=== PATIENT | male | born 1985 | race Caucasian/White ===

== ENCOUNTER 2019-05-12 22:58 | Inpatient (IN) | payer OTHER ==
[2019-05-12] MEDS ORDERED: Fentanyl 100 MCG/2 ML VIAL ONE (23:03)
[2019-05-12] MEDS ORDERED: Adacel (T-DAP) 0.5 ML SYRINGE ONE (23:03)
[2019-05-12 23:18] LABS: #Basophils 0.1 thou/uL (0.0-0.2); #Eosinphils 0.5 thou/uL (0.0-0.7); #Monocytes 0.7 thou/uL (0.11-0.59); #Neutrophils 8.4 thou/uL (1.40-6.50); %Basophils 0.6 % (0.0-1.0); %Monocytes 6.2 % (0.0-10.0); %Neutrophils 72.2 % (42.0-75.0); Hemoglobin 15.3 g/dL (14.0-18.0); Mean Corpuscular HGB CONC 34.6 g/dL (32.0-36.0); Mean Corpuscular Hemoglobin 31.4 pg (27.0-31.0); Mean Corpuscular Volume 90.8 fL (78.0-98.0); Mean Platelet Volume 9.2 fL (7.4-10.4); Platelet Count 156 thou/uL (130-400); RBC Distribution Width 11.4 % (11.5-14.5); Red Blood Cell (RBC) Count 4.85 mill/uL (4.70-6.10); White Blood Cell (WBC) Count 11.6 thou/uL (4.8-10.8)
--- NOTE | 2019-05-12 23:30 | RAD ---
XR Tib Fib Rt Leg 2 View HISTORY: Post reduction COMPARISON: None. FINDINGS: Comminuted mainly obliquely oriented distal tibial shaft and a more transverse to slightly oblique orientation of the distal fibular fracture noted. The distal aspects of both fractures are posteriorly angulated. The distal tibial fracture appears to have a intra-articular component extendi ng into the tibial plafond. IMPRESSION: Distal tibia and fibular fractures.
[2019-05-12 23:38] LABS: ALT (SGPT) 50 U/L (8-55); AST (SGOT) 28 U/L (5-34); Albumin 4.6 g/dL (3.5-5.0); Alkaline Phosphatase 75 U/L (40-110); Anion Gap 13 mmol/L (10-20); BUN (Urea Nitrogen) 12 mg/dL (8.9-20.6); Bilirubin, Total 0.4 mg/dL (0.2-1.2); Calc. Creatinine Clearance 0 mL/min (70-130); Carbon Dioxide 24 mmol/L (22-29); Chloride 104 mmol/L (98-107); Estimated GFR-MDRD Greater than 90; Globulin 2.4 g/dL (2.4-3.5); Glucose 122 mg/dL (70-105); Potassium 3.9 mmol/L (3.5-5.1); Sodium 137 mmol/L (136-145)
[2019-05-12] MEDS ORDERED: Morphine 4 MG/ML VIAL ONE (23:46)
[2019-05-12] MEDS ORDERED: Ondansetron PF 4 MG/2 ML Vial ONE (23:46)
--- NOTE | 2019-05-12 23:51 | RAD ---
XR Chest 1 View Portable HISTORY: Preop COMPARISON: None. FINDINGS: Heart size and mediastinum are within normal limits. The lungs are clear of infiltrates. Ol d right clavicle fracture seen. IMPRESSION: No active intrathoracic disease.
[2019-05-12 23:56] LABS: Magnesium 1.9 mg/dL (1.6-2.6); Phosphorus 3.2 mg/dL (2.3-4.7)
[2019-05-12] MEDS ORDERED: Dextrose 50% Abboject 50 ML SYRINGE SLOW IVP PRN (23:57)
[2019-05-12] MEDS ORDERED: Ondansetron PF 4 MG/2 ML Vial IVP PRN (23:57)
[2019-05-12] MEDS ORDERED: hydrALAZINE 20 MG/ML VIAL SLOW IVP PRN (23:57)
[2019-05-12] MEDS ORDERED: Dextrose 5% in Water 1,000 ML IV PRN (23:57)
[2019-05-13] MEDS ORDERED: Morphine 4 MG/ML VIAL ONE (00:27)
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
--- NOTE | 2019-05-13 01:02 | CON ---
DATE OF CONSULTATION: CHIEF COMPLAINT: Right ankle pain. HISTORY OF PRESENT ILLNESS: Mr. Land is a 33-year-old male, who stepped off a step onto uneven ground. He fell and rotated his ankle. He had pain and immediate deformity. He was unable to bear weight. He had bleeding. He was taken to the emergency department from [place]. He was found to have an open distal tibia and fibular fracture. Orthopedics was consulted for this injury. The patient has been given Ancef and has had a dressing placed over his wound. He is resting comfortably. He has received morphine. PAST MEDICAL HISTORY: The patient has a history of anxiety and depression. PAST SURGICAL HISTORY: Denies recent or past surgeries. MEDICATIONS: Zoloft, buspirone, and Ambien. REVIEW OF SYSTEMS: Positive for right ankle and leg pain. Otherwise, negative 10-point review of systems. SOCIAL HISTORY: The patient does not smoke tobacco. He does use marijuana. He denies significant alcohol use. IMAGING STUDIES: X-rays of the right leg demonstrate a comminuted and displaced distal tibia and fibular fracture. The fracture appears open with disruption of the soft tissues. PHYSICAL EXAMINATION: VITAL SIGNS: The patient's vital signs are stable. He is afebrile, pulse is 83, blood pressure is 121/82, respiratory rate 16, and temperature is 98. GENERAL: He is alert, lying supine, in no apparent distress. HEENT: Normocephalic and atraumatic. RESPIRATORY: Breathing comfortably. ABDOMEN: Soft, nontender, and nondistended. CARDIOVASCULAR: Pulses are palpable and regular. MUSCULOSKELETAL: The patient's right foot has an intact dorsalis pedis pulse. He is able to flex and extend the toes. He reports feeling sensation of the dorsal and plantar foot. He has a 5 cm laceration, which is vertical in orientation over the medial malleolus. There is exposed medial malleolar bone and fracture bone in the wound. No active arterial bleeding. IMPRESSION: Open right distal tibia and fibular fracture in a young man. PLAN: At this point, the patient will have a reduction in the emergency department and splinting. He has received antibiotics. He will go to the operating room first thing in the morning for irrigation and debridement of his wounds as well as open reduction and internal fixation of the tibia and fibula. I did discuss with him the external fixation if his wounds are contaminated. He is aware of prolonged recovery process. He is aware of risks and benefits, which to include infection, wound complication, nerve or vascular injury, bleeding, and others. He wants to proceed with surgery. He will be n.p.o. until surgery. He will have intravenous antibiotics and DVT prophylaxis. Job ID: [id number]
[2019-05-13] MEDS: Morphine 4 MG/ML VIAL SLOW IVP PRN ×4 (01:29→07:29)
[2019-05-13] MEDS: Cyclobenzaprine 10 MG TAB PO PRN (01:30)
[2019-05-13] MEDS: Acetaminophen 500 MG TAB PO SCH ×3 (01:30→13:19)
[2019-05-13] MEDS: Sodium Chloride 0.9% 1,000 ML IV SCH ×3 (01:30→16:30)
[2019-05-13] MEDS: cefTRIAXone\\ROCEPHIN 2 GM in Sodium Chloride 0.9% 100 ML IVPB SCH ×2 (01:31→23:34)
[2019-05-13 01:46] VITALS: BMI 35.0
[2019-05-13] MEDS: Ibuprofen 600 MG TAB PO SCH ×3 (05:20→20:24)
[2019-05-13] MEDS ORDERED: CEFAZOLIN 2 GM in Premix Bag 1 BAG IVPB SCH ×2 (06:00→14:00)
[2019-05-13] MEDS ORDERED: HYDROmorphone 0.5 MG/0.5 ML SYRINGE ONE ×2 (08:52→12:51)
[2019-05-13] MEDS ORDERED: Fentanyl 100 MCG/2 ML VIAL ONE ×2 (08:52→12:50)
[2019-05-13] MEDS ORDERED: Midazolam HCl 2 mg/2 ml Vial ONE (08:52)
[2019-05-13] MEDS ORDERED: Lidocaine 2% Jelly 5 ML TUBE ONE (08:53)
[2019-05-13] MEDS ORDERED: Lisinopril 20 MG TAB PO SCH (09:00)
[2019-05-13] MEDS ORDERED: Lidocaine 1% PF 5 ML VIAL ONE (09:40)
[2019-05-13] MEDS ORDERED: Ondansetron PF 4 MG/2 ML Vial ONE (09:40)
[2019-05-13] MEDS ORDERED: Dexamethasone 20 MG/5 ML VIAL ONE (09:40)
[2019-05-13] MEDS ORDERED: Ropivacaine 0.5% HCl/PF (150 MG/30 ML VIAL) ONE (09:40)
[2019-05-13] MEDS ORDERED: PROPOFOL 200 MG/20 ML VIAL ONE (09:40)
[2019-05-13] MEDS ORDERED: Bupivacaine HCl 0.5%/Epinephrine 1:200,000/PF 30 ml Vial ONE (09:40)
[2019-05-13] MEDS ORDERED: HYDROmorphone 2 MG/ML VIAL ONE (09:45)
[2019-05-13] MEDS ORDERED: Ketorolac Tromethamine 30 MG/ML VIAL IVP PRN (12:19)
[2019-05-13] MEDS ORDERED: Ondansetron HCl/PF 4 MG/2 ML Vial IVP PRN (12:19)
[2019-05-13] MEDS ORDERED: Meperidine HCl/PF 25 MG/ML VIAL SLOW IVP PRN ×2 (12:19)
[2019-05-13] MEDS ORDERED: Promethazine HCl 25 MG/ML VIAL IM PRN ×2 (12:19→13:48)
[2019-05-13] MEDS ORDERED: Promethazine HCl 25 MG/ML VIAL SLOW IVP PRN (12:19)
[2019-05-13] MEDS ORDERED: HYDROmorphone 2 MG/ML VIAL SLOW IVP PRN (12:19)
[2019-05-13] MEDS ORDERED: Ketorolac Tromethamine 30 MG/ML VIAL ONE (12:46)
[2019-05-13] MEDS ORDERED: Lidocaine 1% (PF) 30 ML VIAL ONE (13:16)
[2019-05-13] MEDS: busPIRone HCl 10 MG TAB PO SCH ×2 (13:18→20:31)
[2019-05-13] MEDS: Famotidine/PF 20 mg/2ml Vial SLOW IVP SCH ×2 (13:19→20:24)
[2019-05-13] MEDS: Escitalopram Oxalate 20 mg Tablet PO SCH (13:19)
[2019-05-13] MEDS: Polyethylene Glycol 3350 17 GM Packet PO SCH (13:19)
[2019-05-13] MEDS: Senokot S 8.6-50 MG TAB PO SCH ×2 (13:19→20:31)
[2019-05-13] MEDS ORDERED: Ropivacaine 0.2% 550 ML 550 ML NERVE BLCK SCH (13:48)
[2019-05-13] MEDS ORDERED: HYDROcodone/Acetaminophen 10/325 mg Tablet PO PRN ×2 (13:48)
[2019-05-13] MEDS ORDERED: Ondansetron PF 4 MG/2 ML Vial IVP PRN (13:48)
[2019-05-13] MEDS ORDERED: Zolpidem Tartrate 5 MG TAB PO PRN (13:48)
[2019-05-13] MEDS ORDERED: traMADol HCl 50 MG TAB PO PRN ×4 (13:48)
[2019-05-13] MEDS ORDERED: Fentanyl 100 MCG/2 ML VIAL SLOW IVP PRN (13:48)
[2019-05-13] MEDS ORDERED: Acetaminophen 325 MG TAB PO PRN (13:48)
--- NOTE | 2019-05-13 15:00 | RAD ---
RIGHT TIBIA AND FIBULA 3 VIEWS: Date: 05/13/2019 HISTORY: Intraoperative films. FINDINGS: These films show open reduction and internal fixation of a comminuted distal tibia fracture with plat e and screws, also fixation of a distal fibular shaft fracture with plate and screws. IMPRESSION: Open reduction and internal fixation of distal tibia and fibular fractures. POS: [facility]
--- NOTE | 2019-05-13 18:03 | OP ---
DATE OF PROCEDURE: 05/13/2019 PROCEDURES PERFORMED: 1. Open reduction and internal fixation of right distal tibia fracture and distal fibular fracture. 2. Irrigation and debridement of open distal tibia and fibular fractures. PREOPERATIVE DIAGNOSES: Open right distal tibia and fibular fracture. POSTOPERATIVE DIAGNOSES: Open right distal tibia and fibular fracture. COMPLICATIONS: None. ESTIMATED BLOOD LOSS: Minimal. INSULATION ESTIMATOR: Abdiaziz Singh MD IMPLANTS: Synthes one-third tubular plate, 6 hole and a distal tibial medial variable angle plate were utilized. INDICATIONS: Mr. Land is a 33-year-old male, who fell and fractured his right distal tibia and fibular. He sustained an open fracture. He was indicated for open reduction and internal fixation to restore anatomic alignment and promote healing. Risks have been reviewed in detail. He has elected to proceed with the operation. DESCRIPTION OF PROCEDURE: Mr. Land was identified in the preoperative holding area. His correct extremity was marked. He was carried to the operating room. He was positioned supine. General anesthesia was induced. A multidisciplinary time-out was performed. The right lower extremity was prepped and draped in a sterile fashion. We began the procedure with an extension of the patient's traumatic medial wound. We debrided the wound sharply down to the fascia level. We debrided the tip of the bone as well. We exposed the fracture and bony ends. We then thoroughly irrigated with 5 L of lavage. At this point, we performed a preliminary reduction of the bone. Next, we moved to the lateral side. We made an incision over the distal fibula. We dissected down through the subcutaneous tissues to the fascia, which was opened. We then protected the soft tissues with retractors and evaluated the fracture. There was a comminuted and shortened fibular fracture. We pulled length on the bone and restored to anatomic position. At this point, we applied a six hole 1/3 tubular plate along the lateral cortex. Six screws were placed. We took x-ray images confirming that we had appropriate length and reduction. At this point, we moved to the medial ankle again at the tibia. We slid a variable angle tibial plate along the periosteal tissues. We assessed this with intraoperative x-ray. We then placed the screw proximally followed by multiple distal locking screws holding our reduction rigidly. We placed multiple more screws proximally and distally. Once we had adequate fixation again, we took final images. We were satisfied with our reduction. We did place a front to back screw to stabilize the posterior malleolus fracture. Finally, we thoroughly irrigated once more. We then closed with 0 Vicryl suture, 2-0 Vicryl suture, and nylon for the skin. A sterile dressing was applied. The patient was taken to the recovery room after a splint was placed. Job ID: [id number]
[2019-05-13] MEDS: CEFAZOLIN 2 GM in Premix Bag 1 BAG IVPB SCH (18:37)
[2019-05-13] MEDS: traZODone HCl 50 MG TAB PO SCH (20:31)
[2019-05-13] MEDS ORDERED: Non-Formulary Item 1 EACH (Trazodone Hcl [Trazodone Hcl] 100 MG) PO SCH (21:00)
--- NOTE | 2019-05-14 00:34 | PRG ---
DATE OF SERVICE: 05/13/2019 SUBJECTIVE: Mr. Land is a 33-year-old male, status post mechanical fall from one step resulting in an open right tib-fib fracture. Patient was admitted to the Trauma Service on 05/12/2019. He is now postop day zero status post open reduction internal fixation of his injury. Upon my evaluation, the patient reports good pain control and vocalized no other concerns. OBJECTIVE: VITAL SIGNS: Temperature 98.7, pulse 79, respirations 16, O2 saturation 95% on room air, and blood pressure 120/74. GENERAL: Resting in bed, in no acute distress. PULMONARY: Normal work of breathing. Symmetric rise. CARDIOVASCULAR: Regular rate and rhythm. GI: Abdomen is soft, nontender, and nondistended. MUSCULOSKELETAL: Right lower extremity, orthopedic dressing is clean, dry, and intact. Patient is neurovascularly intact at the site of his injury. All other extremities within normal limits. NEUROLOGIC: GCS is 15. No focal deficit is noted. LABORATORY FINDINGS: No new laboratory findings. ASSESSMENT: 1. Status post mechanical fall. 2. Right open tib-fib fracture, postop day zero status post repair. 3. Acute traumatic pain. 4. History of traumatic brain injury and posttraumatic stress disorder. PLAN: Patient has already been working with Physical Therapy earlier today. Plan to continue tomorrow to evaluate for safety for home discharge. Transition patient's pain medication to p.o. only. Stop IV fluids. Continue home medications. As this was an open orthopedic injury, we will have to discuss with Orthopedic Surgery and the duration of IV antibiotics. Plan of care was discussed with the patient at bedside and all questions were answered prior to this dictation. Patient was discussed with Trauma attending. Job ID: [id number]
[2019-05-14] MEDS: traMADol HCl 50 MG TAB PO SCH ×4 (00:47→17:01)
[2019-05-14] MEDS: Acetaminophen 500 MG TAB PO SCH ×4 (00:47→17:01)
[2019-05-14] MEDS: CEFAZOLIN 2 GM in Premix Bag 1 BAG IVPB SCH ×3 (01:19→17:02)
[2019-05-14] MEDS: Ibuprofen 600 MG TAB PO SCH ×3 (05:09→19:57)
[2019-05-14] MEDS: Escitalopram Oxalate 20 mg Tablet PO SCH (09:08)
[2019-05-14] MEDS: Polyethylene Glycol 3350 17 GM Packet PO SCH (09:08)
[2019-05-14] MEDS: Famotidine/PF 20 mg/2ml Vial SLOW IVP SCH ×2 (09:08→19:58)
[2019-05-14] MEDS: Senokot S 8.6-50 MG TAB PO SCH ×2 (09:08→19:58)
[2019-05-14] MEDS: Gabapentin 300 MG CAP PO SCH ×3 (09:08→19:58)
[2019-05-14] MEDS: busPIRone HCl 10 MG TAB PO SCH ×2 (09:09→19:58)
[2019-05-14] MEDS: Cyclobenzaprine 10 MG TAB PO PRN ×2 (09:23→21:01)
--- NOTE | 2019-05-14 10:06 | PRG ---
DATE OF SERVICE: 05/14/2019 SUBJECTIVE: Scooter is a 33-year-old male postop day #1 from a right leg open tibia fracture with accompanying fibular fracture. He underwent open reduction and internal fixation of both bones yesterday. He is comfortable with his block, and at this point, convalescing in the hospital for antibiotic treatment for his open fracture. OBJECTIVE: VITAL SIGNS: Temperature 98.9, pulse 89, respiratory rate 20 and unlabored, O2 saturations 98% on room air, blood pressure 133/90. GENERAL: He is alert and oriented to person, place, time, situation, responsive, and appropriate with examiner. EXTREMITIES: The right lower extremity demonstrates a good capillary refill. He has full digital excursion. Splints intact. No strike through. IMPRESSION: A 33-year-old male postop day #1, right open tibia fracture with closed fibular fracture, status post open reduction and internal fixation in both bones. PLAN: Continue antibiotic infusion for another 24 hours, then plan for discharge to home. Strict nonweightbearing. Job ID: [id number]
--- NOTE | 2019-05-14 14:02 | PRG ---
DATE OF SERVICE: 05/14/2019 SUBJECTIVE: This is a 33-year-old gentleman, postop day #1, open reduction and internal fixation of a right distal tib-fib fracture and irrigation and debridement of open fracture. The patient is currently awake, alert, in no distress, sitting up in the hospital bed. The patient report his pain is well controlled at this time. The patient has been able to ambulate using crutches without any difficulty. The patient denies any complaints or concerns. The patient continues to have a normal appetite without any nausea or vomiting. OBJECTIVE: VITAL SIGNS: Temperature 98.9, pulse 80, respirations 18, SpO2 of 95% on room air, and blood pressure 126/77. GENERAL: Middle-age male, well-appearing, resting in bed, in no acute distress. PULMONARY: Equal chest rise and fall, normal work of breathing. CARDIOVASCULAR: Regular rate and regular rhythm. ABDOMEN: Soft, nontender, and nondistended. MUSCULOSKELETAL: Right lower extremity orthopedic dressing clean, dry, and intact. LABORATORY DATA: There are no new laboratory findings. ASSESSMENT: 1. Status post mechanical fall. 2. Right open tib-fib fracture, postop day #1 status post repair. 3. Acute traumatic pain. 4. History of traumatic brain injury and post-traumatic stress disorder. PLAN: Continue physical/occupational therapy. Continue IV antibiotics per Orthopedic Surgery for a total 48 hours. Continue supportive care and regular diet. The patient should be able to be discharged home tomorrow morning after the completion of his antibiotics. The patient was discussed with the Trauma attending. Job ID: [id number]
[2019-05-14] MEDS: traZODone HCl 50 MG TAB PO SCH (19:58)
[2019-05-14] MEDS ORDERED: HYDROcodone/Acetaminophen 10/325 mg Tablet PO PRN (22:32)
[2019-05-14] MEDS ORDERED: Gabapentin 300 MG CAP PO SCH (22:45)
[2019-05-14] MEDS: HYDROcodone/Acetaminophen 10/325 mg Tablet PO PRN (22:45)
[2019-05-14] MEDS ORDERED: Acetaminophen 325 MG TAB PO SCH (22:45)
[2019-05-14] MEDS: cefTRIAXone\\ROCEPHIN 2 GM in Sodium Chloride 0.9% 100 ML IVPB SCH (23:32)
--- NOTE | 2019-05-15 00:19 | PRG ---
DATE OF SERVICE: 05/14/2019 SUBJECTIVE: The patient was seen this evening, lying in bed. Nursing reported the patient had increase in pain to his right lower extremity. It appears the effects of the nerve block has diminished. Reports increased sensation in his right foot as well. Otherwise, he is tolerating diet. OBJECTIVE: VITAL SIGNS: Temperature 99, pulse 71, respirations 14, oxygen saturation 97% on room air, blood pressure 124/81. GENERAL: Well-appearing middle-aged male, sitting in bed with no signs of acute distress. PULMONARY: Equal chest rise and fall. ASSESSMENT: 1. Status post mechanical fall. 2. Right open tib-fib fracture, status post repair. 3. Acute traumatic pain, worsening. 4. Posttraumatic stress disorder and traumatic brain injury. PLAN: Continue current diet. There is no concern for a compartment syndrome at this time. We will continue to closely monitor. The patient did report that he had partially dislodged the right nerve block catheter earlier. We did talk to Anesthesia to evaluate it. They reported they will see it tomorrow, but it is not uncommon for the potency of the medication to wear off after 24 hours. We will increase his pain regimen to [place] p.r.n. and decrease his scheduled Tylenol as well. Continue other adjunct of pain medications. The patient will likely be discharged home tomorrow. He worked with crutches and PT and reports he has help at home. Job ID: [id number]
[2019-05-15] MEDS: CEFAZOLIN 2 GM in Premix Bag 1 BAG IVPB SCH ×2 (01:57→09:22)
[2019-05-15] MEDS: HYDROcodone/Acetaminophen 10/325 mg Tablet PO PRN ×2 (06:09→12:24)
[2019-05-15] MEDS: Ibuprofen 600 MG TAB PO SCH ×2 (06:10→12:24)
[2019-05-15] MEDS: Acetaminophen 325 MG TAB PO SCH ×2 (06:10→12:23)
[2019-05-15 07:21] VITALS: BP 134/78; TEMP 98.8
[2019-05-15] MEDS: Senokot S 8.6-50 MG TAB PO SCH (09:21)
[2019-05-15] MEDS: busPIRone HCl 10 MG TAB PO SCH (09:21)
[2019-05-15] MEDS: Polyethylene Glycol 3350 17 GM Packet PO SCH (09:22)
[2019-05-15] MEDS: Gabapentin 300 MG CAP PO SCH (09:22)
[2019-05-15] MEDS: Escitalopram Oxalate 20 mg Tablet PO SCH (09:22)
[2019-05-15] MEDS: Famotidine/PF 20 mg/2ml Vial SLOW IVP SCH (09:22)
--- NOTE | 2019-05-16 00:14 | DIS ---
DATE OF ADMISSION: 05/12/2019 DATE OF DISCHARGE: 05/15/2019 ADMISSION DIAGNOSES: 1. Status post mechanical fall from one step. 2. Open right distal tibia and fibular fracture. 3. Acute traumatic pain. 4. History of traumatic brain injury and posttraumatic stress disorder. CONSULTATIONS: Orthopedics, Dr. Mccrary. PROCEDURES: 1. Irrigation and debridement of open distal tibia and fibular fracture. 2. Open reduction and internal fixation of right distal tibia and fibular fracture. SUMMARY: The patient is a 33-year-old man, who reportedly fell approximately from one step, landing onto his right ankle. He was brought to the emergency department as a level 2 trauma activation, where he underwent evaluation and examination and was noted to have the above injury. He would be taken that evening to the operating room to undergo his above procedures, which he tolerated well. Due to his open fracture, he was kept in the hospital for IV antibiotics and at the time of discharge, he had completed all of his doses of antibiotics. His pain was controlled. He was tolerating a diet. He was ambulating with crutches. The patient will follow up with Dr. Mccrary in 14 days or sooner as needed. Job ID: [id number]
== END 2019-05-15 14:05 | disposition home or self-care (01) | DRG 492 ==
LOC: ERS 22:58 → SURG A 23:46
PROVIDERS: ADMIT Surgery; ATTEND Surgery
PROC: 0QSG04Z Reposition Right Tibia with Internal Fixation Device, Open Approach (ICD-10-PCS; principal; 2019-05-13)
PROC: 0QSJ04Z Reposition Right Fibula with Internal Fixation Device, Open Approach (ICD-10-PCS; 2019-05-13)
DX: S82.391B Other fracture of lower end of right tibia, initial encounter for open fracture type I or II (principal); S82.831B Other fracture of upper and lower end of right fibula, initial encounter for open fracture type I or II; W10.9XXA Fall (on) (from) unspecified stairs and steps, initial encounter; F43.10 Post-traumatic stress disorder, unspecified; F41.9 Anxiety disorder, unspecified; F32.9 Major depressive disorder, single episode, unspecified; F12.10 Cannabis abuse, uncomplicated; Z79.899 Other long term (current) drug therapy; Z87.820 Personal history of traumatic brain injury
CPT/HCPCS: 36415; 71045; 76000; 80053; 83605; 83735; 84100; 85025; 86850; 86900; 86901; 90471; 90715; 93005; 96374; 96375; 96376; A4306; C1713; G0390; J0670; J0690; J0696; J1100; J1170; J1885; J2001; J2250; J2270; J2405; J2704; J2795; J3010; J3490; S0028

== ENCOUNTER 2019-08-16 12:30 | Inpatient (IN) | payer OTHER ==
[2019-08-22] MEDS ORDERED: Lidocaine 1% PF 5 ML VIAL ONE (11:17)
[2019-08-22] MEDS ORDERED: Rocuronium Bromide 10 MG/ML (10ML VIAL) ONE (11:17)
[2019-08-22] MEDS ORDERED: Ondansetron PF 4 MG/2 ML Vial ONE (11:17)
[2019-08-22] MEDS ORDERED: PROPOFOL 200 MG/20 ML VIAL ONE (11:17)
[2019-08-22] MEDS ORDERED: Dexamethasone 20 MG/5 ML VIAL ONE (11:17)
[2019-08-22] MEDS ORDERED: Glycopyrrolate 0.2 MG/ML 5 ML SYRINGE ONE (11:17)
[2019-08-22] MEDS ORDERED: Ropivacaine 0.5% HCl/PF (150 MG/30 ML VIAL) ONE (11:17)
[2019-08-22] MEDS ORDERED: Fentanyl 100 MCG/2 ML VIAL ONE ×3 (13:12→16:30)
[2019-08-22] MEDS ORDERED: HYDROmorphone 2 MG/ML VIAL ONE (14:20)
[2019-08-22] MEDS ORDERED: HYDROcodone/Acetaminophen 5/325 mg Tablet PO PRN ×2 (15:30)
[2019-08-22] MEDS ORDERED: Ondansetron HCl/PF 4 MG/2 ML Vial IVP PRN (15:30)
[2019-08-22] MEDS ORDERED: Meperidine HCl/PF 25 MG/ML VIAL SLOW IVP PRN (15:30)
[2019-08-22] MEDS ORDERED: HYDROmorphone 2 MG/ML VIAL SLOW IVP PRN (15:30)
[2019-08-22] MEDS ORDERED: Morphine Sulfate 2 MG/ML SYRINGE SLOW IVP PRN (15:30)
[2019-08-22] MEDS ORDERED: Acetaminophen 325 MG TAB PO PRN ×2 (15:30→16:35)
[2019-08-22] MEDS ORDERED: PACU-Morphine 4MG/ML VIAL SLOW IVP PRN (15:30)
[2019-08-22] MEDS ORDERED: Ondansetron ODT 4 MG TAB PO PRN (15:30)
[2019-08-22] MEDS ORDERED: Promethazine HCl 25 MG/ML VIAL IM PRN ×2 (15:30→16:35)
[2019-08-22] MEDS ORDERED: Promethazine HCl 25 MG/ML VIAL SLOW IVP PRN (15:30)
[2019-08-22] MEDS ORDERED: Acetaminophen/Codeine 30-300mg Tablet PO PRN ×2 (15:35)
[2019-08-22] MEDS ORDERED: Ketorolac Tromethamine 30 MG/ML VIAL IVP PRN (15:37)
[2019-08-22] MEDS ORDERED: traMADol HCl 50 MG TAB PO PRN ×2 (15:38)
[2019-08-22] MEDS ORDERED: Ondansetron PF 4 MG/2 ML Vial IVP PRN (16:35)
[2019-08-22] MEDS ORDERED: Zolpidem Tartrate 5 MG TAB PO PRN (16:35)
[2019-08-22] MEDS ORDERED: Ropivacaine 0.2% 550 ML 550 ML NERVE BLCK SCH (16:35)
[2019-08-22] MEDS ORDERED: Fentanyl 100 MCG/2 ML VIAL IV PRN (16:36)
[2019-08-22 17:39] VITALS: BMI 33.6
[2019-08-22] MEDS: Ketorolac Tromethamine 30 MG/ML VIAL IVP SCH ×2 (17:41→23:10)
[2019-08-22] MEDS ORDERED: CEFAZOLIN 2 GM in Premix Bag 1 BAG IVPB SCH (19:00)
[2019-08-22] MEDS: CEFAZOLIN 2 GM in Premix Bag 1 BAG IVPB SCH (20:31)
[2019-08-22] MEDS: busPIRone HCl 10 MG TAB PO SCH (20:32)
--- NOTE | 2019-08-22 20:55 | RAD ---
RIGHT ANKLE TWO VIEWS: Indication: History of right ankle fracture fixation. Comparison: Right leg radiograph, 05-13-2019. FINDINGS: Since the comparison examination, the instrumentation appears similar appearing. Fracture alignment i s unchanged. Total fluoroscopic time of 36.4 seconds, 7.51 mGy*cm^2. IMPRESSION: Operative fixation of the distal right foreleg. POS: [facility]
[2019-08-22] MEDS ORDERED: traZODone HCl 50 MG TAB PO SCH (21:00)
--- NOTE | 2019-08-22 22:41 | OP ---
DATE OF PROCEDURE: 08/22/2019 PREOPERATIVE DIAGNOSIS: Right distal tibial delayed union. POSTOPERATIVE DIAGNOSIS: Right distal tibial delayed union. PROCEDURES: 1. Bone graft to right distal tibial delayed union site. 2. TIMO bone graft harvest from right femur. ANESTHESIA: General. DRUG ABUSE WORKER: Bartolome Doss PA-C TOURNIQUET TIME: Zero. ESTIMATED BLOOD LOSS: 200 mL. IMPLANTS: None. DRAINS: None. SPECIMEN: None. COMPLICATIONS: None. OUTCOME: Successful bone graft. INDICATIONS FOR PROCEDURE: Patient is a 33-year-old gentleman, status post right distal tibia fracture with severe comminution. He is now status post open reduction internal fixation. However, he is going on to a delayed union with no significant callus formation since surgery. As such, patient now taken back to the operating room for a bone graft procedure to this distal tibial metaphyseal fracture. Informed consent has been obtained. I believe all questions have been answered. DESCRIPTION OF PROCEDURE: Patient was brought to the operating room and a time-out performed followed by induction of general anesthesia. Next, patient was positioned supine on the [place] radiolucent table and then a sterile prep and drape was performed of the entire right lower extremity. Next, a small incision was made proximal to greater trochanter of the femur after skin was sharply incised, dissection was carried down bluntly such that the tip of the greater trochanter could be palpated. Next, a threaded guidewire was passed from this starting point down into the proximal femoral metaphysis. A starting reamer was then passed over this guidewire. Next, a ball-tipped guidewire was passed down the shaft of the femur to the distal femoral metaphysis and then a TIMO device measuring 15 mm was passed over this guidewire harvesting intramedullary bone graft. At the completion of harvest, the proximal wound was again irrigated and closed in layers with 0 Vicryl followed by 2-0 Vicryl and tony for the skin. Attention was placed at the lateral incision at the ankle using the previous incision site from the open reduction internal fixation of the distal fibula, the skin was incised sharply and the dissection was carried anterior to the distal fibula, taking care to identify the peroneal nerve and protected. The dissection was then carried to the lateral side of the extensor tendons. The extensor tendons were elevated such that the interosseous membrane could be identified and then the anterolateral distal tibia identified. At this point, the fracture gaps could be visualized. These were filled with a scar tissue. Next, using a combination of curette, as well as rongeur as the scar tissue was removed into the intramedullary canal of the distal tibia, roughening of the bone then performed also using the curette. Once the cavity has been fully developed, the harvested TIMO graft was packed into this cavity, getting excellent fill as well as some further bone overlying the anterior tibia. At the completion of this, final AP C-arm image was obtained of the proximal tibia just to confirm the filling of the defect with the graft. This region was then irrigated with bulb syringe and then the wound closed in layers with the extensor retinaculum. The fascia closed with 0 Vicryl followed by 2-0 Vicryl and then tony for the skin. Gwyn wrap dressing was applied to this wound with a Xeroform gauze and tape dressing to the lateral thigh. Patient was then transferred to recovery room in stable condition. Following the procedure, duplex was used to confirm pulses of both dorsalis pedis and posterior tibial pulse due to the close approximation we were with the dorsalis pedis pulse. Again, the patient tolerated the procedure well. Job ID: [id number]
[2019-08-23] MEDS: Ketorolac Tromethamine 30 MG/ML VIAL IVP SCH (05:57)
[2019-08-23] MEDS: CEFAZOLIN 2 GM in Premix Bag 1 BAG IVPB SCH (05:58)
[2019-08-23] MEDS: busPIRone HCl 10 MG TAB PO SCH (08:27)
[2019-08-23 08:29] VITALS: BP 111/62; TEMP 98.4
[2019-08-23] MEDS ORDERED: Escitalopram Oxalate 20 mg Tablet PO SCH (09:00)
== END 2019-08-23 11:00 | disposition home or self-care (01) | DRG 494 ==
LOC: SURG A 08-22 11:02 → EDSTATUS 08-22 12:30 → SURG A 08-22 17:48
PROVIDERS: ADMIT Orthopaedic Surgery; ATTEND Orthopaedic Surgery
PROC: 0QUG07Z Supplement Right Tibia with Autologous Tissue Substitute, Open Approach (ICD-10-PCS; principal; 2019-08-22)
PROC: 0QB Lower Bones, Excision (ICD-10-PCS; 2019-08-22)
DX: S82.301G Unspecified fracture of lower end of right tibia, subsequent encounter for closed fracture with delayed healing (principal); X58.XXXD Exposure to other specified factors, subsequent encounter; Z01.812 Encounter for preprocedural laboratory examination; Z11.59 Encounter for screening for other viral diseases
CPT/HCPCS: 76000; 87635; A4306; C1769; J0690; J1100; J1170; J1885; J2001; J2405; J2704; J2795; J3010; U0003

== ENCOUNTER 2019-08-19 06:11 | Outpatient (CLI) | payer OTHER ==
[2019-08-19 18:20] LABS: SARS-CoV-2 MS2 Positive; SARS-CoV-2 N Gene Negative; SARS-CoV-2 S Gene Negative; SARS-CoV-2 orf1ab Negative
== END 2019-08-19 06:12 | disposition home or self-care (01) ==
LOC: LABBT 06:11
PROVIDERS: ATTEND Orthopaedic Surgery
DX: Z01.812 Encounter for preprocedural laboratory examination (principal); Z11.59 Encounter for screening for other viral diseases; S82.301D Unspecified fracture of lower end of right tibia, subsequent encounter for closed fracture with routine healing
CPT/HCPCS: 87635; U0003